=== PATIENT | male | born 1980 | race African-American/Black ===

== ENCOUNTER 2017-03-09 08:19 | Emergency (ER) | payer OTHER ==
[~2017-03-09] VITALS: Ht 180.3 cm; Wt 102.1 kg
[2017-03-09 08:24] VITALS: BP 148/73
[2017-03-09] MEDS ORDERED: IBUPROFEN 200200 M1 PO (08:26)
== END 2017-03-09 09:25 | disposition home or self-care (01) ==
LOC: ER 08:19
DX: S86.812A Strain of other muscle(s) and tendon(s) at lower leg level, left leg, initial encounter (principal); F10.99 Alcohol use, unspecified with unspecified alcohol-induced disorder; W18.39XA Other fall on same level, initial encounter; Y93.64 Activity, baseball; Y92.39 Other specified sports and athletic area as the place of occurrence of the external cause; Y99.8 Other external cause status